=== PATIENT | male | born 1990 | race American Indian/Alaskan Native ===

== ENCOUNTER 2020-10-17 08:30 | Emergency (ER) | payer OTHER ==
[2020-10-17 08:41] VITALS: BP 147/98
--- NOTE | 2020-10-17 09:49 | Emergency Department Report ---
Chief Complaint: Medical Clearance Stated Complaint: STOMACH PAIN Time Seen by Provider: 10/17/20 09:21 - HPI History of Present Illness: This is a 30-year-old male nontoxic, well nourished in appearance, no acute signs of distress presents to the ED for a work excuse. Patient stated that after things giving he started to have slight abdominal pain but has resolved. Patient that he missed work and when he went to work today they requested him to have a work excuse to return to work. Patient otherwise denies any complaints. Denies any abdominal pain, nausea, vomiting, chest pain, shortness of breath, headache, stiff neck, back pain or any urinary symptoms. Patient that he is asymptomatic and just is here today for a work excuse. Denies any allergies or significant past medical history. - Exam Vital Signs: Vital Signs 10/17/20 08:36 Temperature 98.8 F Pulse Rate 81 Respiratory 18 Rate Blood Pressure 147/98 O2 Sat by Pulse 98 Oximetry Physical Exam: GENERAL: The patient is a well-developed, well-nourished in no apparent distress. Patient is alert and acting appropriately for age. Alert and oriented 3, no apparent distress, normal gait, atraumatic. ABDOMEN: Soft, nontender, and nondistended. Positive bowel sounds. No hepatosplenomegaly was noted. No guarding or rebound tenderness, negative epigastric bruit. Negative psoas sign, negative harper sign, negative McBurneys sign PSYCHIATRIC: Normal affect with no suicidal or homicidal ideations. MSE screening note: Focused history and physical exam performed. Due to findings the following was ordered: ED Medical Decision Making - Medical Decision Making This is a 30-year-old male that presents with nonmedical emergency. Patient is stable and was examined by me. Patient is asymptomatic. I will refer the patient [facility]. At time of discharge, the patient does not seem toxic or ill in appearance. No acute signs of distress noted. Patient agrees to discharge treatment plan of care. No further questions noted by the patient. ED Disposition for MSE Clinical Impression: Encounter to obtain excuse from work Disposition: - MED SCREENING EXAM-LEFT Is pt being admited?: No Does the pt Need Aspirin: No Condition: Stable Additional Instructions: Follow-up with a primary care doctor in 3-5 days or if symptoms worsen and continue return to emergency room as soon as possible. Referrals: PRIMARY CARE,MD [Primary Care Provider] - 3-5 Days DANNY BHAKTA MD [Staff Physician] - 3-5 Days
== END 2020-10-17 10:06 | disposition left against medical advice (07) ==
LOC: ED 08:30
DX: R10.9 Unspecified abdominal pain (principal); Z53.21 Procedure and treatment not carried out due to patient leaving prior to being seen by health care provider